=== PATIENT | male | born 1970 | race Caucasian/White ===

== ENCOUNTER 2016-10-06 05:12 | Inpatient (IN) | payer OTHER ==
[~2016-10-06] VITALS: Ht 180.3 cm; Wt 144.5 kg
[~2016-10-06 05:12] MED LIST: ANDROGEL75 GM TD; GLUCOPHAGE1000 MG PO; GLUCOTROL5 MG PO; KLONOPIN0.5 M1 PO; LO-DOSE ASPIRIN81 M2 PO; MICARDIS80 MG PO; MULTI-DAY VITA1 EACH PO; PRAVACHOL20 MG PO; VICODIN ES 7.51 EAC1 PO
[2016-10-06 06:00] VITALS: BP 143/67
[2016-10-06 06:28] LABS: POINT-OF-CARE METER ID UU14174212
[2016-10-06 09:00] LABS: POINT-OF-CARE METER ID UU13113675
[2016-10-06 10:39] VITALS: BP 157/74
[2016-10-06 15:20] VITALS: BP 178/81
[2016-10-06 15:44] VITALS: BP 144/82
[2016-10-06 19:24] VITALS: BP 144/68
[2016-10-06 23:08] VITALS: BP 174/80
[2016-10-07 04:26] VITALS: BP 170/79
[2016-10-07 07:09] LABS: MCH 28.2 PG (29.0-34.0); MCHC 33.1 G/DL (30.0-36.0); MCV 85.2 FL (86-99); MEAN PLAT.VOLUME 11.6 uM^3 (9.0-12.4); PLATELET COUNT 198 K/uL (156-360); RBC DIS.WIDTH-CV 13.1 % (11.8-14.6); RBC DIS.WIDTH-SD 40.4 % (39-53); RED BLOOD COUNT 4.93 M/uL (4.00-5.50)
[2016-10-07 07:33] LABS: ANION GAP 9 MEQ/L (2-14); CHLORIDE 100 MEQ/L (99-109); GFR ESTIMATE (CALCULATED) > 59 mL/min/; GLUCOSE 123 mg/dL (70-99); MAGNESIUM 2.1 mg/dl (1.3-2.7); POTASSIUM 4.1 MEQ/L (3.7-5.4); SAMPLE HEMOLYSIS CHECK 0; SAMPLE ICTERIC CHECK 0; SAMPLE LIPEMIA CHECK 0; SODIUM 135 MEQ/L (136-147); UREA NITROGEN (BUN) 8 mg/dL (9-23)
[2016-10-07 08:05] VITALS: BP 164/78
[2016-10-07] MEDS ORDERED: HYDROCODON-ACE1 EAC7 PO (08:30)
== END 2016-10-07 10:05 | disposition home or self-care (01) | DRG 621 ==
LOC: 2SOUTH 05:12 → 2EASTP 10:25 → 2SOUTH 11:43 → 2EASTP 10-07 10:05
PROVIDERS: Surgery
PROC: 0DB64Z3 Excision of Stomach, Percutaneous Endoscopic Approach, Vertical (ICD-10-PCS; principal; 2016-10-06)
DX: E66.01 Morbid (severe) obesity due to excess calories (principal); I10 Essential (primary) hypertension; E11.9 Type 2 diabetes mellitus without complications; G47.33 Obstructive sleep apnea (adult) (pediatric); E78.1 Pure hyperglyceridemia; Z68.41 Body mass index [BMI] 40.0-44.9, adult; Z79.82 Long term (current) use of aspirin
CPT/HCPCS: 80048; 82948; 83735; 84100; 85027; J0330; J0690; J1170; J1644; J1650; J1815; J1885; J2250; J2270; J2300; J2405; J2550; J2710; J3010; J3480; J7120; S0020

== ENCOUNTER 2017-03-11 23:07 | Emergency (ER) | payer OTHER ==
[~2017-03-11] VITALS: Ht 180.3 cm; Wt 100.0 kg
[~2017-03-11 23:07] MED LIST changes: +HYDROCODON-ACE1 EAC7 PO
[2017-03-12 00:18] LABS: BASOPHIL COUNT 0.1 K/uL (0-0.1); EOSINOPHIL COUNT 0.2 K/uL (0-0.3); HEMATOCRIT 43.5 % (38.0-50.0); IMMATURE GRANULOCYTE (%) 0.4 % (0.0-0.7); INSTRUMENT ABS NEUTROPHIL CT 5.5 K/uL; LYMPHOCYTE COUNT 1.8 K/uL (1.0-2.8); MCH 29.2 PG (29.0-34.0); MCV 85.8 FL (86-99); MONOCYTE (%) 8.8 % (3-12); MONOCYTE COUNT 0.7 K/uL (0-0.8); NEUTROPHIL (%) 66.3 % (45-76); NEUTROPHIL COUNT 5.5 K/uL (1.8-6.4); PLATELET COUNT 170 K/uL (156-360); RBC DIS.WIDTH-CV 13.6 % (11.8-14.6); RBC DIS.WIDTH-SD 42.3 % (39-53); RED BLOOD COUNT 5.07 M/uL (4.00-5.50); WHITE BLOOD COUNT 8.3 K/uL (4.1-10.2)
[2017-03-12 00:27] LABS: CHLORIDE 107 mEq/L (99-109); POTASSIUM 3.4 mEq/L (3.7-5.4); SODIUM 142 mEq/L (136-147)
[2017-03-12 00:29] LABS: GLUCOSE 83 mg/dL (70-99)
[2017-03-12 00:30] LABS: ANION GAP 9 MEQ/L (2-14)
[2017-03-12 00:33] LABS: GFR ESTIMATE (CALCULATED) > 59 mL/min/; UREA NITROGEN (BUN) 10 mg/dL (9-23)
[2017-03-12] MEDS ORDERED: CLEOCIN300 MG PO (01:05)
[2017-03-12 01:20] VITALS: BP 128/79
[2017-03-12 02:14] LABS: C-REACTIVE PROTEIN 3.4 MG/L (0-10)
[2017-03-12 10:34] LABS: LYME DISEASE SEROLOGY SCREEN NEGATIVE (NEGATIVE)
[2017-03-13] MEDS ORDERED: TELMISARTAN40 MG PO (13:36)
[2017-03-13] MEDS ORDERED: KEFLEX500 MG PO (14:28)
== END 2017-03-12 01:24 | disposition home or self-care (01) ==
LOC: EME 23:07
PROVIDERS: Physician Assistant
DX: S80.261A Insect bite (nonvenomous), right knee, initial encounter (principal); L03.115 Cellulitis of right lower limb; W57.XXXA Bitten or stung by nonvenomous insect and other nonvenomous arthropods, initial encounter; I10 Essential (primary) hypertension; E11.9 Type 2 diabetes mellitus without complications; Z79.84 Long term (current) use of oral hypoglycemic drugs; Z79.82 Long term (current) use of aspirin
CPT/HCPCS: 80048; 85025; 86140; 86618; 99281; 99284; J1885; J7030

== ENCOUNTER 2017-03-13 11:40 | Emergency (ER) | payer OTHER ==
[~2017-03-13] VITALS: Ht 180.3 cm; Wt 100.9 kg
[~2017-03-13 11:40] MED LIST changes: +CLEOCIN300 MG PO
[2017-03-13 13:29] LABS: EOSINOPHIL (%) 1.8 % (0-5); EOSINOPHIL COUNT 0.1 K/uL (0-0.3); HEMATOCRIT 42.9 % (38.0-50.0); IMMATURE GRANULOCYTE (%) 0.2 % (0.0-0.7); INSTRUMENT ABS NEUTROPHIL CT 3.6 K/uL; LYMPHOCYTE COUNT 1.2 K/uL (1.0-2.8); MCH 28.9 PG (29.0-34.0); MCHC 33.1 G/DL (30.0-36.0); MCV 87.2 FL (86-99); MEAN PLAT.VOLUME 11.7 uM^3 (9.0-12.4); MONOCYTE (%) 10.6 % (3-12); MONOCYTE COUNT 0.6 K/uL (0-0.8); NEUTROPHIL (%) 65.2 % (45-76); NEUTROPHIL COUNT 3.6 K/uL (1.8-6.4); PLATELET COUNT 149 K/uL (156-360); RBC DIS.WIDTH-CV 13.8 % (11.8-14.6); RBC DIS.WIDTH-SD 43.9 % (39-53); RED BLOOD COUNT 4.92 M/uL (4.00-5.50); WHITE BLOOD COUNT 5.5 K/uL (4.1-10.2)
[2017-03-13] MEDS ORDERED: TELMISARTAN40 MG PO (13:36)
[2017-03-13 13:38] LABS: CHLORIDE 108 mEq/L (99-109); POTASSIUM 3.9 mEq/L (3.7-5.4); SODIUM 142 mEq/L (136-147)
[2017-03-13 13:40] LABS: GLUCOSE 94 mg/dL (70-99)
[2017-03-13 13:41] LABS: ANION GAP 7 MEQ/L (2-14)
[2017-03-13 13:44] LABS: GFR ESTIMATE (CALCULATED) > 59 mL/min/
[2017-03-13 13:45] LABS: UREA NITROGEN (BUN) 7 mg/dL (9-23)
[2017-03-13] MEDS ORDERED: KEFLEX500 MG PO (14:28)
[2017-03-13 14:59] VITALS: BP 120/66
== END 2017-03-13 15:00 | disposition home or self-care (01) ==
LOC: EME 11:40
PROVIDERS: Emergency Medicine
DX: L03.115 Cellulitis of right lower limb (principal); I10 Essential (primary) hypertension; E11.9 Type 2 diabetes mellitus without complications; Z79.82 Long term (current) use of aspirin
CPT/HCPCS: 80048; 83605; 85025; 99281; 99285; J0690; J7050

== ENCOUNTER 2017-07-02 18:32 | Emergency (ER) | payer OTHER ==
[~2017-07-02] VITALS: Ht 180.3 cm; Wt 99.3 kg
[~2017-07-02 18:32] MED LIST changes: +KEFLEX500 MG PO; +TELMISARTAN40 MG PO
[2017-07-02] MEDS ORDERED: ACULAR 0.5100 DROP/5 BOTH EYES (19:32)
[2017-07-02 19:50] VITALS: BP 153/77
== END 2017-07-02 20:07 | disposition home or self-care (01) ==
LOC: EME 18:32
DX: H10.33 Unspecified acute conjunctivitis, bilateral (principal)
CPT/HCPCS: 99281; 99283